=== PATIENT | female | born 1990 | race Caucasian/White ===

== ENCOUNTER 2020-08-27 00:45 | Emergency (ER) | payer OTHER, SELFPAY ==
--- NOTE | 2020-08-27 | ECG_ITS ---
Test Reason : SYNCOPE Blood Pressure : / mmHG Vent. Rate : 075 BPM Atrial Rate : 075 BPM P-R Int : 154 ms QRS Dur : 092 ms QT Int : 366 ms P-R-T Axes : 047 010 018 degrees QTc Int : 408 ms Normal sinus rhythm with sinus arrhythmia Incomplete right bundle branch block Borderline ECG No previous ECGs available Referred By: Laurie Forbes Electronically Signed By:MARIANO OLIVO
[2020-08-27 00:55] VITALS: BP 94/62; PULSE 84; RESP 16; TEMP 37.2; O2SAT 98; BMI 30.3
[2020-08-27 01:48] LABS: MANUAL DIFF FLAG NO
[2020-08-27 01:50] LABS: Basophils Percent Auto 0.4 % (0-2); Eosinophils Absolute Auto 0.1 X10*3/uL (0.0-0.4); Eosinophils Percent Auto 0.6 % (0-4); Hematocrit 39.1 % (37-47); Hemoglobin 13.5 g/dl (12.0-16.0); Imm Gran Abs Auto 0.01 X10*3/uL (0.00-0.03); Imm Gran Pct Auto 0.1 % (0.0-0.4); Lymphocytes Absolute Auto 1.7 X10*3/uL (1.2-4.9); Lymphocytes Percent Auto 21.4 % (20-40); Mean Corpuscular HGB Conc 34.5 g/dl (31.0-35.0); Mean Corpuscular Hemoglobin 32.3 pg (27.0-33.0); Mean Corpuscular Volume 93.5 fL (80-98); Mean Platelet Volume 9.5 fL (9.4-12.3); Monocytes Absolute Auto 0.5 X10*3/uL (0.1-1.2); Monocytes Percent Auto 6.8 % (2-11); Neutrophils Absolute Auto 5.6 X10*3/uL (2.0-8.3); Neutrophils Percent Auto 70.7 % (45-73); Platelet Count 227 X10*3/uL (160-400); Red Blood Count 4.18 X10*6/uL (4.20-5.50); Red Cell Distribution Width 11.6 % (11.0-16.0)
[2020-08-27 02:00] VITALS: BP 108/61; PULSE 75; RESP 16; TEMP 36.9; O2SAT 99
[2020-08-27 02:10] LABS: Alanine Aminotransferase 11 U/L (0-31); Alkaline Phosphatase 44 U/L (39-117); Anion Gap 10 (12-20); Aspartate Amino Transferase 13 U/L (5-31); Bilirubin Total 0.6 mg/dL (0.0-1.0); Blood Urea Nitrogen 12 mg/dL (9-16); Calcium 8.5 mg/dL (8.4-10.2); Carbon Dioxide 26 mmol/L (22-29); Chloride 108 mmol/L (96-108); Creatinine Clr Calc Pharmacy 112.2; Estimated Glomerular Filt Rate > 60; Glucose Random 111 mg/dL (60-115); Potassium 4.2 mmol/L (3.3-5.1); Sodium 140 mmol/L (135-145); Total Protein 6.2 g/dL (6.5-8.0)
--- NOTE | 2020-08-27 02:18 | ED.SYNCOPE ---
HPI - Syncope General Chief Complaint: Syncope Stated Complaint: ? nausea Time Seen by Provider: 08/27/20 00:57 Source: patient Mode of arrival: EMS Limitations: no limitations History of Present Illness HPI narrative: Patient comes emergency room complaining of a syncopal episode. Patient states she was complaining of pain due to a procedure she had earlier done today, bilateral axillary glands were ?zapped . Patient states she suffers from anxiety and panic attacks, she had a very similar feeling of getting a panic attack, patient walked towards her bedroom, then she stumbled and her caught her, seems that she passed out. Patient states that this moment she feels well. Patient denies any chest pain or shortness of breath even prior to the syncopal episode. At this time, patient is no longer anxious. Related Data Allergies Allergy/AdvReac Type Severity Reaction Status Date / Time butorphanol [From Stadol] Allergy Unknown Verified 08/27/20 01:00 latex Allergy Unknown Verified 08/27/20 01:00 promethazine Allergy Unknown Verified 08/27/20 01:00 Sulfa (Sulfonamide Allergy Unknown Verified 08/27/20 01:00 Antibiotics) Review of Systems Review of Systems: Constitutional : No Weight loss, No Fever, No Chills, No Night Sweats, No Fatigue, No Malaise ENT/Mouth : No Hearing loss, No Ear Pain, No Nasal Congestion, No Sinus Pain, No Hoarseness, No sore throat, No Rhinorrhea, No Swallowing Difficulty Eyes: No Eye Pain, No Swelling, No Redness, No Foreign Body, No Discharge, No Vision Changes Cardiovascular : No Chest Pain, No SOB, No Dyspnea on Exertion, No Orthopnea, No Edema, No Palpitations Respiratory : No Cough, No Sputum, No Wheezing, No Smoke Exposure, No Dyspnea Gastrointestinal : No Nausea, No Vomiting, No Diarrhea, No Constipation, No abdominal Pain, No Hematochezia, No Melena Genitourinary : no irregular bleeding, No Dysuria, No Urinary Frequency, No Hematuria, No Urinary Incontinence, No Urgency, No Flank Pain, No Urinary Flow Changes, No Hesitancy Musculoskeletal : No joint pain, No Myalgias, No Joint Swelling Skin : Complaining of bilateral axillary pain status post op Neuro : No Weakness, No Numbness, No Paresthesias, No Loss of Consciousness, No Dizziness, No Headache Psych : Had anxiety, panic attack, now resolved No Depression, No SI/HI/AH/VH, No Social Issues, Heme/Lymph: No Bruising, No Bleeding,No Lymphadenopathy Endocrine : No Polyuria, No Polydipsia, No Temperature Intolerance [facility] Past Medical History Medical History Anxiety Migraines Social History Social History Advance Directives: No Advance Directives Information Provided: No Physical Exam Vital Signs: Vital Signs: Last Vital Signs Temp 98.5 F 08/27/20 02:00 Pulse 75 08/27/20 02:00 Resp 16 08/27/20 02:00 BP 108/61 08/27/20 02:00 Pulse Ox 99 08/27/20 02:00 Body Mass Index 30.3 Appearance: Alert. Oriented X3. No acute distress. Eyes: Pupils equal, round and reactive to light. ENT: Pharynx normal. Neck: Normal inspection. Neck supple. No lymph nodes noted. No crepitus CVS: Normal heart rate and rhythm. Pulses normal. Normal S1 and S2 Respiratory: No respiratory distress. Breath sounds normal. No Wheezing. No rales Abdomen: Soft and nontender. No rigidity. No distention. good BS x4 Skin: Skin warm and dry. Bilateral axilla swollen, incision sites healing well. Slightly ecchymotic, no suspicion of developing hematoma Extremities: No lower extremity edema. No lower extremity edema. No Lacerations. No Rash Neuro: Oriented X 3. No motor deficit. No sensory deficit. Moving all extermities. No slurred speech. Course Course Course Narrative: I discussed the labs with the patient, patient likely had a vasovagal episode/panic attack. At this time, patient is asymptomatic. MDM - Syncope Lab Data Result diagrams: 08/27/20 01:44 08/27/20 01:44 Labs: Lab Results 08/27/20 08/27/20 08/27/20 Range/Units 01:44 01:44 01:44 WBC 8.0 (4.8-10.8) X10*3/uL RBC 4.18 L (4.20-5.50) X10*6/uL Hgb 13.5 (12.0-16.0) g/dl Hct 39.1 (37-47) % MCV 93.5 (80-98) fL MCH 32.3 (27.0-33.0) pg MCHC 34.5 (31.0-35.0) g/dl RDW 11.6 (11.0-16.0) % Plt Count 227 (160-400) X10*3/uL MPV 9.5 (9.4-12.3) fL Immature Gran % (Auto) 0.1 (0.0-0.4) % Neut % (Auto) 70.7 (45-73) % Lymph % (Auto) 21.4 (20-40) % [place] % (Auto) 6.8 (2-11) % Eos % (Auto) 0.6 (0-4) % Baso % (Auto) 0.4 (0-2) % Lymph # (Auto) 1.7 (1.2-4.9) X10*3/uL [place] # (Auto) 0.5 (0.1-1.2) X10*3/uL Eos # (Auto) 0.1 (0.0-0.4) X10*3/uL Baso # (Auto) 0.0 (0.0-0.2) X10*3/uL Abs Immat Gran (auto) 0.01 (0.00-0.03) X10*3/uL Absolute Neuts (auto) 5.6 (2.0-8.3) X10*3/uL Absolute Nucleated RBC 0.000 (0.0-0.012) X10*3/uL Nucleated RBC % (auto) 0.0 (0.0-0.2) /100WBC Sodium 140 (135-145) mmol/L Potassium 4.2 (3.3-5.1) mmol/L Chloride 108 (96-108) mmol/L Carbon Dioxide 26 (22-29) mmol/L Anion Gap 10 L (12-20) BUN 12 (9-16) mg/dL Creatinine 0.71 (0.5-1.4) mg/dL Estim Creat Clear Calc 112.2 Estimated GFR > 60 Random Glucose 111 (60-115) mg/dL Calcium 8.5 (8.4-10.2) mg/dL Total Bilirubin 0.6 (0.0-1.0) mg/dL AST 13 (5-31) U/L ALT 11 (0-31) U/L Alkaline Phosphatase 44 (39-117) U/L Troponin I High Sens < 3.5 (<3.5-17.0) ng/L Total Protein 6.2 L (6.5-8.0) g/dL Albumin 4.0 (3.5-5.0) g/dL ECG Data Attestation: I personally reviewed and interpreted this ECG as follows: (Sinus rhythm, heart rate 75, no ST segment depression or elevation, nonspecific T-wave inversion in lead 3, incomplete right bundle branch block, QTC 408) Discharge Plan Discharge Clinical Impression: Vasovagal syncope Patient Disposition: Home, Self-Care Instructions: Syncope (ED) Additional Instructions: Please follow-up with your primary care physician tomorrow. If you have any worsening or new symptoms, please return to the emergency room or call 911
[2020-08-27] MEDS: Ibuprofen 600 MG TABLET PO (02:32)
[2020-08-27 02:53] LABS: Troponin-I High Sensitivity < 3.5 ng/L (<3.5-17.0)
[2020-08-27 04:00] VITALS: BP 117/62; PULSE 80; RESP 17; TEMP 36.6; O2SAT 99
== END 2020-08-27 05:09 | disposition home or self-care (01) ==
PROVIDERS: Emergency Provider Emergency Medicine
DX: R55 Syncope and collapse (principal)
CPT/HCPCS: 36415; 80053; 84484; 85025; 93005; 99283; 99284

== ENCOUNTER 2023-08-24 17:44 | Emergency (ER) | payer OTHER, SELFPAY ==
--- NOTE | ~2023-08-24 | CT_ITS ---
EXAMINATION: CT ABDOMEN AND PELVIS WITH CONTRAST CLINICAL INFORMATION: Severe lower abdominal pain, rule out acute appendicitis COMPARISON: None TECHNIQUE: Multiple axial images were obtained from the superior aspect of the liver through the pubic symphysis after the administration of 85 mL of intravenous Omnipaque 350. Images were evaluated on independent dedicated 3-D workstation and 3-D images were reconstructed with concurrent radiologist supervision and subsequently interpreted. Oral contrast was not administered. This CT examination was performed using dose optimization techniques as appropriate, variously including the following: *Automated exposure control *Adjustment of mA and/or kV according to patient size (this includes techniques or standardized protocols for targeted exams where dose is matched to indication/reason for exam; i.e. extremities or head) *Use of iterative reconstruction technique DLP: 710 mGy-cm FINDINGS: LUNG BASES: The visualized lung bases are clear. CARDIOMEDIASTINUM: The visualized heart is normal in size without pericardial effusion. No coronary artery calcification. LIVER: Homogeneous in attenuation. Normal in size. GALLBLADDER: Noninflamed. BILIARY SYSTEM: No intrahepatic or extrahepatic biliary dilation. PANCREAS: Homogeneous in attenuation. SPLEEN: Normal in size. GENITOURINARY: Bilateral kidneys demonstrate symmetric enhancement. No perinephric fluid collection. No renal calculi. No hydroureteronephrosis. ADRENAL GLANDS: Unremarkable. REPRODUCTIVE: Anteverted uterus. Intrauterine device noted in situ. No solid adnexal masses. GASTROINTESTINAL: The visualized alimentary tract is normal in course. No evidence of obstruction. APPENDIX: The appendix identified with hyperemic wall and periappendiceal fat stranding suggestive of acute appendicitis. No perforation or fluid collection. PERITONEUM: No pneumoperitoneum. No intra-abdominal fluid collection. VASCULATURE: The abdominal aorta is normal in course and caliber. LYMPH NODES: No pathologically enlarged abdominal or pelvic lymph nodes. SOFT TISSUES/MUSCULOSKELETAL: There is no acute fracture or significant focal osseous lesion. CT/CT abdomen pelvis w IV con IMPRESSION: Acute uncomplicated appendicitis. Fleischner guidelines were followed.
[2023-08-24 18:32] VITALS: BP 121/91; PULSE 93; RESP 18; TEMP 36.9; O2SAT 96; BMI 33.9
[2023-08-24 19:01] LABS: MANUAL DIFF FLAG NO
[2023-08-24 19:03] LABS: Appearance Urine Clear; Basophils Percent Auto 0.4 % (0-2); Color Urine Yellow; Eosinophils Absolute Auto 0.1 X10*3/uL (0.0-0.4); Eosinophils Percent Auto 1.4 % (0-4); Glucose Urine UA Negative (Negative); Hematocrit 38.2 % (37.0-47.0); Hemoglobin 13.6 g/dl (12.0-16.0); Imm Gran Abs Auto 0.05 X10*3/uL (0.00-0.03); Imm Gran Pct Auto 0.5 % (0.0-0.4); Leukocyte Esterase Urine Negative (Negative); Lymphocytes Absolute Auto 1.9 X10*3/uL (1.2-4.9); Lymphocytes Percent Auto 19.8 % (20-40); Mean Corpuscular HGB Conc 35.6 g/dl (31.0-35.0); Mean Corpuscular Hemoglobin 32.2 pg (27.0-33.0); Mean Corpuscular Volume 90.3 fL (80.0-98.0); Mean Platelet Volume 9.4 fL (9.4-12.3); Monocytes Absolute Auto 0.6 X10*3/uL (0.1-1.2); Monocytes Percent Auto 6.3 % (2-11); Neutrophils Absolute Auto 6.8 x10*3/uL (2.0-8.3); Neutrophils Percent Auto 71.6 % (45-73); Nitrite Urine Negative (Negative); PH 6.5 (5.0-9.0); Platelet Count 281 X10*3/uL (160-400); Red Blood Count 4.23 X10*6/uL (4.20-5.50); Red Cell Distribution Width 11.3 % (11.0-16.0); Specific Gravity - Urine 1.025 (1.005-1.025); Urine Blood Negative (Negative); Urine Ketones 80 mg/dL (Negative); Urine Protein Negative (Neg-Trace); White Blood Count 9.5 X10*3/uL (4.8-10.8)
[2023-08-24 19:04] LABS: UPreg QC Valid YES; Urine Pregnancy NEGATIVE (NEGATIVE)
[2023-08-24 19:19] LABS: Alanine Aminotransferase 24 U/L (0-31); Albumin Level 4.1 g/dL (3.5-5.0); Alkaline Phosphatase 63 U/L (39-117); Anion Gap 12 (12-20); Aspartate Amino Transferase 20 U/L (5-31); Bilirubin Total 0.4 mg/dL (0.0-1.0); Blood Urea Nitrogen 14 mg/dL (9-16); Calcium 9.9 mg/dL (8.4-10.2); Carbon Dioxide 24 mmol/L (22-29); Chloride 107 mmol/L (96-108); Creatinine Clr Calc Pharmacy 106.4; Estimated Glomerular Filt Rate > 60; Glucose Random 118 mg/dL (60-115); Lipase 22 U/L (8-78); Potassium 3.7 mmol/L (3.3-5.1); Sodium 139 mmol/L (135-145); Total Protein 7.2 g/dL (6.5-8.0)
[2023-08-24 20:42] VITALS: BP 105/49; PULSE 89; RESP 16; TEMP 37.1; O2SAT 95
[2023-08-24] MEDS: oxyCODONE HCl Immed Release 5 MG TABLET PO (21:37)
[2023-08-24] MEDS: iohexoL 350 MG/ML 100 ML INFUS..BTL IV (21:49)
[2023-08-24 22:00] VITALS: BP 99/61; PULSE 81; RESP 16; TEMP 36.7; O2SAT 96
--- NOTE | 2023-08-24 22:01 | ED.ABDPAIN ---
HPI - Abdominal Pain General Chief Complaint: Abdominal Pain Stated Complaint: lower abd pain Time Seen by Provider: 08/24/23 20:54 Source: patient Mode of arrival: ambulatory Limitations: no limitations History of Present Illness HPI narrative: 33-year-old female with a history of IBS presents to the ER with complaints of several hours of lower abdominal pain with nausea. She denies any vomiting, urinary symptoms, fevers or chills. Patient reports earlier today she had some diarrhea but this is not unusual for her with her underlying history of IBS. She took ibuprofen prior to arrival and on my exam is now feeling improved. She denies any vaginal discharge. She does have an IUD so she has irregular menses. Low suspicion for STI or Related Data Allergies Allergy/AdvReac Type Severity Reaction Status Date / Time butorphanol [From Stadol] Allergy Hallucinati Verified 08/24/23 18:39 ons latex Allergy Rash Verified 08/24/23 18:39 promethazine Allergy Hallucinati Verified 08/24/23 18:39 ons Sulfa (Sulfonamide Allergy Rash Verified 08/24/23 18:39 Antibiotics) Review of Systems Review of Systems Yes all other systems are reviewed and are negative Constitutional: Reports no additional constitutional complaints, Denies body ache(s), Denies chills, Denies fever(s), Denies headache(s) and Denies weakness Eyes: Reports no additional eye complaints and Denies change in vision Reports system reviewed and no additional complaints, except as documented, Denies dizziness, Denies headache(s), Denies nasal congestion, Denies nasal discharge and Denies neck pain Cardiovascular: Reports no additional cardiovascular complaints, Denies chest pain, Denies leg edema and Denies dyspnea Respiratory: Reports no additional respiratory complaints, Denies cough and Denies dyspnea Gastrointestinal: Reports no additional gastrointestinal complaints, Reports abdominal pain, Reports diarrhea, Reports nausea and Denies vomiting Genitourinary: Reports no additional female genitourinary complaints and Denies urinary incontinence Musculoskeletal: Reports no additional musculoskeletal complaints, Denies back pain, Denies arthralgias, Denies joint swelling, Denies neck pain, Denies numbness and Denies tingling Skin/Breast: Reports system reviewed and no additional complaints, except as docu and Denies rash Reports system reviewed and no additional complaints, except as documented, Denies Abnormal speech present, Denies dizziness, Denies headache(s), Denies numbness, Denies tingling and Denies weakness [facility] Past Medical History Attestation statement: The following information was validated with the patient. Source: old records reviewed and nursing notes reviewed Social History Social History Smoked in Last 30 Days: No Use of substances other than those prescribed or required for medical reasons: No Advance Directives: No Advance Directives Information Provided: No Patient : No Physical Exam ED Vital Signs: Vital Signs - 24 hr 08/24/23 18:32 08/24/23 20:42 08/24/23 22:00 Temperature 98.4 F 98.7 F 98.1 F Pulse Rate 93 89 81 Respiratory Rate 18 16 16 Blood Pressure 121/91 H 105/49 L 99/61 Pulse Oximetry 96 95 96 Oxygen Delivery Method Room Air Room Air Room Air 08/25/23 00:00 Temperature 98.2 F Pulse Rate 85 Respiratory Rate 16 Blood Pressure 118/71 Pulse Oximetry 98 Oxygen Delivery Method Room Air BMI result Body Mass Index 33.9 Const General: cooperative, healthy appearing, comfortable and no acute distress Orientation/consciousness: patient oriented x3 Limitations: no limitations HENMT Head: Yes normal to inspection Ears: hearing grossly normal bilaterally General nose exam: Normal external nose present Face and sinus: Yes normal facial exam Mouth: Normal oral and palatal mucosa present Throat: Yes posterior oropharynx normal Eyes General: appearance normal, both eyes and all related structures Pupils: Equal, round and reactive pupils present Neck Neck: Yes normal visual inspection Chest Chest palpation & inspection: normal inspection of the chest Resp Effort & Inspection: normal respiratory effort Auscultation: clear to auscultation bilaterally Cardio Rate: regular rate Rhythm: regular rhythm Peripheral pulses: Peripheral pulses 2+ throughout GI Inspection: Yes normal to inspection Palpation (GI): Soft to palpation, Tenderness to palpation present (GI) in the LLQ and in the RLQ; with no rebound tenderness and no guarding Auscultation: normal bowel sounds Back/Spine/Pelvis Thoracic/Lumbar Spine: thoracic and lumbar spine normal to inspection Skin General skin exam: no rashes or lesions noted Neuro General: patient oriented x3, no focal motor deficits and normal sensation to monofilament Cranial nerves: Yes Equal, round and reactive pupils present Cognition (Neuro): normal cognition Speech: No Abnormal speech present Gait exam (Neuro): Normal gait present Motor exam (neuro): 5/5 motor strength present throughout Extrem General: Yes normal to inspection Course Course Course Narrative: 0000-CT is concerning for acute appendicitis. At this time infection is suspected. Antibiotics ordered. Medical Decision Making Medical Decision Making [facility] Narrative: 33-year-old female with a history of IBS presents to the ER with complaints of several hours of lower abdominal pain with nausea. She denies any vomiting, urinary symptoms, fevers or chills. Patient reports earlier today she had some diarrhea but this is not unusual for her with her underlying history of IBS. She took ibuprofen prior to arrival and on my exam is now feeling improved. She denies any vaginal discharge. She does have an IUD so she has irregular menses. Low suspicion for STI or Tenderness to bilateral lower quadrants no rebound or guarding Will obtain labs, UA, urine , CT. Will provide analgesia Differential Diagnosis Differential Diagnoses: The differential diagnosis associated with the presentation includes Appendicitis, diverticulitis, low suspicion for SBO, renal colic, pyelonephritis, ovarian torsion, ectopic Admission/Observation Consideration of admission/observation: Escalation of care including admission/observation considered Ct concerning for acute appendicitis requiring surgical consultation and admission Consult Healthcare Provider Management of the patient was discussed with: Readiness Paraprofessional 1111-General surgery Dr Chaidez who accepted admission Lab Data [facility] Lab Attestation statement: I reviewed the patient's lab results. 08/24/23 18:54 08/24/23 18:54 Labs: Lab Results 08/24/23 08/25/23 Range/Units 18:54 00:19 WBC 9.5 (4.8-10.8) X10*3/uL RBC 4.23 (4.20-5.50) X10*6/uL Hgb 13.6 (12.0-16.0) g/dl Hct 38.2 (37.0-47.0) % MCV 90.3 (80.0-98.0) fL MCH 32.2 (27.0-33.0) pg MCHC 35.6 H (31.0-35.0) g/dl RDW 11.3 (11.0-16.0) % Plt Count 281 (160-400) X10*3/uL MPV 9.4 (9.4-12.3) fL Immature Gran % (Auto) 0.5 H (0.0-0.4) % Neut % (Auto) 71.6 (45-73) % Lymph % (Auto) 19.8 L (20-40) % [place] % (Auto) 6.3 (2-11) % Eos % (Auto) 1.4 (0-4) % Baso % (Auto) 0.4 (0-2) % Lymph # (Auto) 1.9 (1.2-4.9) X10*3/uL [place] # (Auto) 0.6 (0.1-1.2) X10*3/uL Eos # (Auto) 0.1 (0.0-0.4) X10*3/uL Baso # (Auto) 0.0 (0.0-0.2) X10*3/uL Abs Immat Gran (auto) 0.05 H (0.00-0.03) X10*3/uL Absolute Neuts (auto) 6.8 (2.0-8.3) x10*3/uL Absolute Nucleated RBC 0.000 (0.0-0.012) X10*3/uL Nucleated RBC % (auto) 0.0 (0.0-0.2) /100WBC Sodium 139 (135-145) mmol/L Potassium 3.7 (3.3-5.1) mmol/L Chloride 107 (96-108) mmol/L Carbon Dioxide 24 (22-29) mmol/L Anion Gap 12 (12-20) BUN 14 (9-16) mg/dL Creatinine 0.77 (0.5-1.4) mg/dL Estim Creat Clear Calc 106.4 Estimated GFR > 60 Random Glucose 118 H (60-115) mg/dL Lactic Acid 0.6 (0.5-2.0) mmol/L Calcium 9.9 (8.4-10.2) mg/dL Total Bilirubin 0.4 (0.0-1.0) mg/dL AST 20 (5-31) U/L ALT 24 (0-31) U/L Alkaline Phosphatase 63 (39-117) U/L Total Protein 7.2 (6.5-8.0) g/dL Albumin 4.1 (3.5-5.0) g/dL Lipase 22 (8-78) U/L Urine Color Yellow Urine Appearance Clear Urine pH 6.5 (5.0-9.0) Ur Specific [place] 1.025 (1.005-1.025) Urine Protein Negative (Neg-Trace) mg/dL Urine Glucose (UA) Negative (Negative) mg/dL Urine Ketones 80 (Negative) mg/dL Urine Blood Negative (Negative) Urine Nitrite Negative (Negative) Ur Leukocyte Esterase Negative (Negative) Urine Test NEGATIVE (NEGATIVE) Independent Interpretation I performed an independent interpretation of an: CT Scan Interpretation: I independently reviewed the CT scan agree with the radiology report Radiology Impression Discussion of test interpretation with radiology: I have reviewed the radiologist's reading. Radiologist Impression: [place] [id number] CT Scan Report Signed Patient: Vanessa Cavazos MR#: [id number] : 1990 Acct:[id number] Age/Sex: 33 / F ADM Date: 08/24/23 Loc: .ED Attending Dr: Ordering Physician: Tammi Rosas NP Date of Service: 08/24/23 Procedure(s): CT abdomen pelvis w IV con Accession Number(s): [id number] cc: Physician,Unknown ; Tammi Rosas NP~ EXAMINATION: CT ABDOMEN AND PELVIS WITH CONTRAST CLINICAL INFORMATION: Severe lower abdominal pain, rule out acute appendicitis COMPARISON: None TECHNIQUE: Multiple axial images were obtained from the superior aspect of the liver through the pubic symphysis after the administration of 85 mL of intravenous Omnipaque 350. Images were evaluated on independent dedicated 3-D workstation and 3-D images were reconstructed with concurrent radiologist supervision and subsequently interpreted. Oral contrast was not administered. This CT examination was performed using dose optimization techniques as appropriate, variously including the following: *Automated exposure control *Adjustment of mA and/or kV according to patient size (this includes techniques or standardized protocols for targeted exams where dose is matched to indication/reason for exam; i.e. extremities or head) *Use of iterative reconstruction technique DLP: 710 mGy-cm FINDINGS: LUNG BASES: The visualized lung bases are clear. CARDIOMEDIASTINUM: The visualized heart is normal in size without pericardial effusion. No coronary artery calcification. LIVER: Homogeneous in attenuation. Normal in size. GALLBLADDER: Noninflamed. BILIARY SYSTEM: No intrahepatic or extrahepatic biliary dilation. PANCREAS: Homogeneous in attenuation. SPLEEN: Normal in size. GENITOURINARY: Bilateral kidneys demonstrate symmetric enhancement. No perinephric fluid collection. No renal calculi. No hydroureteronephrosis. ADRENAL GLANDS: Unremarkable. REPRODUCTIVE: Anteverted uterus. Intrauterine device noted in situ. No solid adnexal masses. GASTROINTESTINAL: The visualized alimentary tract is normal in course. No evidence of obstruction. APPENDIX: The appendix identified with hyperemic wall and periappendiceal fat stranding suggestive of acute appendicitis. No perforation or fluid collection. PERITONEUM: No pneumoperitoneum. No intra-abdominal fluid collection. VASCULATURE: The abdominal aorta is normal in course and caliber. LYMPH NODES: No pathologically enlarged abdominal or pelvic lymph nodes. SOFT TISSUES/MUSCULOSKELETAL: There is no acute fracture or significant focal osseous lesion. CT/CT abdomen pelvis w IV con IMPRESSION: Acute uncomplicated appendicitis. Fleischner guidelines were followed. Independent Historian Clinical information obtained from an independent historian. History obtained from or confirmed by: Spouse Prescription Management I considered prescription management with: Pain Medication Medications Administered Discontinued Medications Generic Name Dose Route Start Last Admin Trade Name Freq PRN Reason Stop Dose Admin Sodium Chloride 1,000 mls @ 999 mls/hr 08/25/23 00:00 08/25/23 01:23 Ns IV 08/25/23 01:00 Infused .Q1H1M ROB Infusion Piperacillin Sod/Tazobactam 50 mls @ 100 mls/hr 08/25/23 00:00 08/25/23 01:23 Sod 3.375 gm/ Sodium Chloride IV 08/25/23 00:29 Infused ONCE ONE Infusion Iohexol 100 ml 08/24/23 21:49 08/24/23 21:49 Iohexol 350 Mg/Ml 100 Ml Infus..Btl IV 08/24/23 21:50 85 ml ONCE ONE Administration Oxycodone HCl 5 mg 08/24/23 21:27 08/24/23 21:37 Oxycodone Hcl Immed Release 5 Mg Tablet PO 08/24/23 21:28 5 mg ONCE ONE Administration Critical Care Time Critical Care Time Critical Care Time: Yes Total Critical Care Time: 90 Attestation: CT shows acute appendicitis requiring and discussion with family and patient bedside, discussion with fashion consultant sales for admission Discharge Plan Discharge Clinical Impression: Acute appendicitis Patient Disposition: Admitted As Inpatient
[2023-08-25] VITALS (13 sets, daily range): BP systolic 106–142; BP diastolic 60–77; PULSE 74–85; RESP 16; TEMP 36.2–37.1; O2SAT 94–98
[2023-08-25] MEDS: Piperacillin Sodium/Tazobactam 3.375 GM in 0.9 % Sodium Chloride 50 ML IV (00:26)
[2023-08-25] MEDS: 0.9 % Sodium Chloride 1,000 ML 999 ML IV (00:27)
--- NOTE | 2023-08-25 00:28 | MHC.EDTECH ---
Patient lactic acid and both sets of blood culture drawn and sent to lab .
[2023-08-25 00:35] LABS: Lactic Acid 0.6 mmol/L (0.5-2.0)
--- NOTE | 2023-08-25 03:35 | PC.NURSE ---
per [facility] surgeon keep pt in ER and will discharge after surgery this AM
--- NOTE | 2023-08-25 06:01 | PC.NURSE ---
Per MD Asher verbal order iv dilaudid 0.5mg for pain. MD Asher aware that it is saying conflict with one of patient's allergies. Pt unsure if she is actually allergic to that specific medication listed. MD Asher aware of this, Verified with MD Forbes in ED as well - verbal OK to order dilaudid 0.5mg iv push for pt prior to surgery.
[2023-08-25] MEDS: HYDROmorphone HCl 0.5 MG/0.5 ML SYRINGE IVPUSH ×2 (06:06→09:52)
--- NOTE | 2023-08-25 06:13 | PC.NURSE ---
per MD Asher OR will be calling for patient around 07:30am.
--- NOTE | 2023-08-25 07:19 | PC.NURSE ---
patient will go to the OR around 7:30 am and has remained NPO. left #20 patent. pain is 2/10
--- NOTE | 2023-08-25 07:47 | PM.HPGS ---
History of Present Illness History of Present Illness Date of Service: 08/25/23 Chief complaint: lower abd pain Narrative: Vanessa Cavazos is a 33 year old female who presents with a proximally 1 day history of initially nonspecific epigastric discomfort which became right lower quadrant pain. Because of progression of symptoms presents to the emergency department. Workup at that time was most noteworthy for right lower quadrant tenderness and a CT scan consistent with early acute appendicitis. Chart was reviewed patient evaluated. Past medical history most noteworthy for irritable bowel syndrome. No other significant comorbidities. [facility] Social History Social History Smoked in Last 30 Days: No Use of substances other than those prescribed or required for medical reasons: No Advance Directives: No Advance Directives Information Provided: No Patient : No Meds Allergies Allergy/AdvReac Type Severity Reaction Status Date / Time butorphanol [From Stadol] Allergy Hallucinati Verified 08/24/23 18:39 ons latex Allergy Rash Verified 08/24/23 18:39 promethazine Allergy Hallucinati Verified 08/24/23 18:39 ons Sulfa (Sulfonamide Allergy Rash Verified 08/24/23 18:39 Antibiotics) Home Medications Medication Instructions Recorded Confirmed Last Taken Type clonazepam 0.5 mg tablet 0.5 mg PO DAILY PRN anxiety 08/25/23 Unknown History duloxetine 60 mg capsule,delayed 60 mg PO DAILY 08/25/23 Unknown History release sumatriptan succinate 50 mg tablet 50 mg PO QD-BID 08/25/23 Unknown History topiramate 50 mg tablet 250 mg PO DAILY 08/25/23 08/25/23 Unknown History Physical Exam Vital Signs: Vital Signs: Last Vital Signs Temp 98.8 F 08/25/23 07:16 Pulse 81 08/25/23 07:16 Resp 16 08/25/23 07:16 BP 108/60 08/25/23 07:16 Pulse Ox 97 08/25/23 05:51 O2 Del Method Room Air 08/25/23 05:51 BMI result Body Mass Index 33.9 Chest: Other: Chest breath sounds bilaterally, HS 1 in 2 GI: Other: Abdomen moderately corpulent, localized right lower quadrant rebound tenderness. Remainder of abdomen benign. Results Results Labs: Short CBC 08/24/23 Range/Units 18:54 WBC 9.5 (4.8-10.8) X10*3/uL Hgb 13.6 (12.0-16.0) g/dl Hct 38.2 (37.0-47.0) % Plt Count 281 (160-400) X10*3/uL BMP 08/24/23 18:54 Sodium 139 Potassium 3.7 Chloride 107 Carbon Dioxide 24 BUN 14 Creatinine 0.77 Calcium 9.9 Liver Function 08/24/23 Range/Units 18:54 Total Bilirubin 0.4 (0.0-1.0) mg/dL AST 20 (5-31) U/L ALT 24 (0-31) U/L Alkaline Phosphatase 63 (39-117) U/L Albumin 4.1 (3.5-5.0) g/dL Urine 08/24/23 Range/Units 18:54 Urine Color Yellow Urine Appearance Clear Urine pH 6.5 (5.0-9.0) Ur Specific [place] 1.025 (1.005-1.025) Urine Protein Negative (Neg-Trace) mg/dL Urine Glucose (UA) Negative (Negative) mg/dL Urine Test NEGATIVE (NEGATIVE) Assessment and Plan (1) Acute appendicitis: Status: Acute Plan Risks, benefits, alternatives of laparoscopic possible open appendectomy were reviewed with the patient and included but not limited to bleeding, infection, numbness, pain, scarring, bowel or bladder injury or leak and the patient wished to proceed. All questions answered. Arrangements were made for this for this morning. Quality Stroke Does the patient have a stroke diagnosis?: No VTE Prior VTE?: No VTE Risk Level:: Surgical - low VTE Device Contraindication: N/A - Device Ordered VTE Drug Contraindication: N/A - Med Ordered Procedures Date of Service Date of Service: 08/25/23
--- NOTE | 2023-08-25 07:53 | PHA.MEDREC ---
Pharmacy Consult ? Medication Reconciliation Pharmacy has completed the medication reconciliation. Spoke with patient to confirm medications. She reports she is no longer taking topiramte and she weened off/stopped taking a few weeks ago.
--- NOTE | 2023-08-25 08:10 | HO.ANESPROP2 ---
HPI - Anesthesia Eval Consult details Narrative: Acute appendicitis PMFSH Active Problems Active Problems: All Active Problems (Updated 08/25/23 @ 01:32 by Tammi Shine NP) Acute appendicitis (Acute) Past Medical History Medical History (Updated 08/25/23 @ 08:11 by Bartolo Rodriguez MD) Migraine Anxiety Patient : No Family History Family history of problems with anesthesia: No Surgical History History of Problems with Anesthesia: No Social History Social History Smoked in Last 30 Days: No Use of substances other than those prescribed or required for medical reasons: No Advance Directives: No Advance Directives Information Provided: No Patient : No Meds Allergies Allergy/AdvReac Type Severity Reaction Status Date / Time butorphanol [From Stadol] Allergy Hallucinati Verified 08/24/23 18:39 ons latex Allergy Rash Verified 08/24/23 18:39 promethazine Allergy Hallucinati Verified 08/24/23 18:39 ons Sulfa (Sulfonamide Allergy Rash Verified 08/24/23 18:39 Antibiotics) Home Medications Medication Instructions Recorded Confirmed Last Taken Type clonazepam 0.5 mg tablet 0.5 mg PO DAILY PRN anxiety 08/25/23 08/25/23 Unknown History duloxetine 60 mg capsule,delayed 60 mg PO DAILY 08/25/23 08/25/23 Unknown History release ibuprofen 200 mg tablet 600 mg PO QD-BID PRN Pain 08/25/23 08/25/23 Unknown History levonorgestrel 14 mcg/24 hrs (3 1 device intrauterine DIRECTED 08/25/23 08/25/23 Unknown History yrs) 13.5 mg intrauterine device ([place]) sumatriptan succinate 50 mg tablet 50 mg PO QD-BID PRN Migraine 08/25/23 08/25/23 Unknown History Headache Exam Height,Weight and Vital Signs: Height 5 ft 3 in Weight 86.7 kg Last Vital Signs Temp 98.8 F 08/25/23 07:16 Pulse 81 08/25/23 07:16 Resp 16 08/25/23 07:16 BP 108/60 08/25/23 07:16 Pulse Ox 97 08/25/23 05:51 O2 Del Method Room Air 08/25/23 05:51 Pertinent Lab Results Pertinent Lab Results: Laboratory Tests 08/24/23 08/25/23 18:54 00:19 WBC 9.5 RBC 4.23 Hgb 13.6 Hct 38.2 MCV 90.3 MCH 32.2 MCHC 35.6 H RDW 11.3 Plt Count 281 MPV 9.4 Immature Gran % (Auto) 0.5 H Neut % (Auto) 71.6 Lymph % (Auto) 19.8 L [place] % (Auto) 6.3 Eos % (Auto) 1.4 Baso % (Auto) 0.4 Lymph # (Auto) 1.9 [place] # (Auto) 0.6 Eos # (Auto) 0.1 Baso # (Auto) 0.0 Abs Immat Gran (auto) 0.05 H Absolute Neuts (auto) 6.8 Absolute Nucleated RBC 0.000 Nucleated RBC % (auto) 0.0 Sodium 139 Potassium 3.7 Chloride 107 Carbon Dioxide 24 Anion Gap 12 BUN 14 Creatinine 0.77 Estim Creat Clear Calc 106.4 Estimated GFR > 60 Random Glucose 118 H Lactic Acid 0.6 Calcium 9.9 Total Bilirubin 0.4 AST 20 ALT 24 Alkaline Phosphatase 63 Total Protein 7.2 Albumin 4.1 Lipase 22 Urine Color Yellow Urine Appearance Clear Urine pH 6.5 Ur Specific [place] 1.025 Urine Protein Negative Urine Glucose (UA) Negative Urine Ketones 80 Urine Blood Negative Urine Nitrite Negative Ur Leukocyte Esterase Negative Urine Test NEGATIVE Airway Mallampati Class: II TM Dist: >3cm Neck ROM: Full Loose/Missing/Broken Teeth: No Heart: RRR Lungs: CTA Assessment and Plan Assessment Anesthesia Assessment: Anesthesia Plan Discussed and Chart Reviewed Final Anesthetic Review Family History of Problems with Anesthesia: No History of Problems with Anesthesia: No NPO: Yes ASA Class: II and Emergency Final Preanesthetic Review: No Changes in Pt Med Stat, Meds/Allgs Chart Reviewed, Consent Obtained/Reviewed and Anes Risks/Benef Reviewed Patient Risk: Intermediate Procedure Risk: Intermediate Anesthetic Plan Anesthetic Plan: GA Disposition: Standard PACU
--- NOTE | 2023-08-25 09:36 | P.OP_ITS ---
Operative Note Operative Note Date of Service: 08/25/23 Narrative: Preoperative diagnosis: [] Acute appendicitis Postop diagnosis: [] The same Procedure [] laparoscopic appendectomy, primary repair of incarcerated umbilical hernia Surgeon: [] [employer] Equipment Installer And Servicer: [] Type of Anesthesia: [] General Indication for surgery: [] Edematous inflamed appendix. No gross evidence of perforation. Moderately corpulent abdomen. Incidental finding of an incarcerated umbilical hernia measuring approximately 2 cm with omental contents. Findings: [] Patient brought to the operating room, placed on operative table in supine position, after adequate level of general anesthesia was induced, the patient's abdomen was prepped and draped in usual sterile fashion. Using a supraumbilical curvilinear incision, this carried down through skin, subcutaneous tissue, were umbilical hernia was identified, circumferentially dissected down the fascia, and opened. Incarcerated omental contents were amputated using Bovie. Melgar technique was used through this defect and the abdominal cavity was infiltrated the 15 mm of CO2. Lower midline and suprapubic ports were placed under direct laparoscopic view, and the patient placed in Trendelenburg position, and tilted to the left. Findings were noted. No other gross intra-abdominal pathology demonstrated. Appendix was identified and grasped and brought out through the field. It is mesentery was sequentially taken down using double firing of ligature device. Appendix was then transected at the cecal base using endoscopic MOLINA stapler. Specimen was placed in an Endo-Catch bag, a retrieved through the umbilical port. Abdominal cavity was copiously irrigated and secured hemostasis. All ports were removed under direct laparoscopic view. Wounds were closed in the following manner; umbilical wound , which was the site of the hernia , was closed primarily using interrupted 0 Vicryl sutures. Skin wounds were closed using subcuticular 4-0 Vicryl sutures followed by Steri-Strips and sterile dressings. Wounds were infiltrated 0.5% Marcaine at completion. Sponge, needle, and instrument counts reported correct. Patient tolerated the procedure well and emerged from anesthesia stable condition. EBL minimal
[2023-08-25] MEDS: Ondansetron ODT 4 MG TAB.RAPDIS TRANSLINGU (10:44)
== END 2023-08-28 04:50 | disposition home or self-care (01) ==
PROVIDERS: Nurse Practitioner Family; Surgery; Emergency Provider Internal Medicine
PROC: 0DTJ4ZZ Resection of Appendix, Percutaneous Endoscopic Approach (ICD-10-PCS; CPT 44970; principal; 2023-08-25 08:30)
DX: K35.80 Unspecified acute appendicitis (principal); K42.0 Umbilical hernia with obstruction, without gangrene; R10.30 Lower abdominal pain, unspecified; R10.13 Epigastric pain
CPT/HCPCS: 44970; 49592; 36415; 74177; 80053; 81003; 81025; 83605; 83690; 85025; 87040; 88304; 96365; 96375; 96376; 99285; J0131; J1100; J1170; J1885; J2405; J2543; J2704; J2795; Q9967

== ENCOUNTER → 2023-08-24 20:53 | Outpatient (BNV) | payer OTHER, SELFPAY | PROVIDERS: Emergency Provider Internal Medicine; Visit Provider Surgery | DX: K35.80 Unspecified acute appendicitis (principal); K42.0 Umbilical hernia with obstruction, without gangrene | CPT/HCPCS: 44970; 99284 ==

== ENCOUNTER 2023-09-04 13:51 | Outpatient (AMB) | payer OTHER, SELFPAY ==
[2023-09-04 13:55] VITALS: BP 132/72; PULSE 95
--- NOTE | 2023-09-04 13:55 | A.OFFVIS_ITS ---
Intake Vital Signs 09/04/23 13:55 Weight 192 lb BP 132/72 Blood Pressure Location Rt brachial Position Sitting Pulse 95 Intake Visit Reasons: s/p lap appy, repair of incarcerated umb hernia Intake Note: Patient here s/p lap appy, incarcerated umb hernia repair. Reports incisions healing well. Patient c/o: sore, tender to touch. SX: 08-25-23. Senior Erp Consultant Required: No Accompanied by: Self / Same As Patient Allergies butorphanol [From Stadol] Allergy (Verified 09/04/23 13:56) Unknown latex Allergy (Verified 09/04/23 13:56) Unknown promethazine Allergy (Verified 09/04/23 13:56) Unknown Sulfa (Sulfonamide Antibiotics) Allergy (Verified 09/04/23 13:56) Unknown HPI HPI Comments History of Present Illness Details Patient presents for follow-up. She initially had some constipation issues whichever have resolved. She has tolerating a diet. She is increasing her activity level. No wound issues. [facility] Medical History Migraine Anxiety Migraines Anxiety Social History Comment: abd Physical Exam Vital Signs: Last Vital Signs Pulse 95 09/04/23 13:55 BP 132/72 09/04/23 13:55 GI Other: Abdomen is soft. All wounds clean dry and intact healing well Assessment & Plan Assessment & Plan (1) Status post laparoscopic appendectomy: Code(s): Z90.49 - Acquired absence of other specified parts of digestive tract Plan Patient has been given local instructions, and will follow-up p.r.n.. She has [facility] papers which were given to Darci. All patient's answered. Coding Level of Care Code Global (17646) Diagnoses Status post laparoscopic appendectomy Z90.49
== END 2023-09-04 14:15 | disposition home or self-care (01) ==
PROVIDERS: Visit Provider Surgery
DX: Z90.49 Acquired absence of other specified parts of digestive tract (principal)
CPT/HCPCS: 99024

== ENCOUNTER → 2023-09-04 13:51 | Outpatient (BNVA) | payer OTHER, SELFPAY | PROVIDERS: Visit Provider Surgery ==